=== PATIENT | male | born 1960 | race Caucasian/White ===

== ENCOUNTER 2019-09-20 20:38 | Emergency (ER) | payer OTHER, SELFPAY ==
--- NOTE | 2019-09-20 21:19 | RAD ---
XR Knee Lt 4 View STANDARD HISTORY: Injury to knee COMPARISON: None. FINDINGS: Mild arthritic changes are present. No fracture or joint effusion. IMPRESSION: No evidence of fracture.
== END 2019-09-20 21:57 | disposition home or self-care (01) ==
LOC: ERS 20:38
DX: S76.111A Strain of right quadriceps muscle, fascia and tendon, initial encounter (principal); I10 Essential (primary) hypertension; E78.5 Hyperlipidemia, unspecified; M19.90 Unspecified osteoarthritis, unspecified site; F41.9 Anxiety disorder, unspecified; Z79.899 Other long term (current) drug therapy; W10.9XXA Fall (on) (from) unspecified stairs and steps, initial encounter; Y93.01 Activity, walking, marching and hiking